=== PATIENT | male | born 1980 | race African-American/Black ===

== ENCOUNTER 2020-01-21 12:28 | Outpatient (REF) | payer MEDICAID, SELFPAY | END 2020-01-21 12:29 | disposition home or self-care (01) | LOC: HO.LAB 12:28 | PROVIDERS: Visit Provider Internal Medicine | DX: Z20.828 Contact with and (suspected) exposure to other viral communicable diseases (principal) | CPT/HCPCS: C9803; U0003 ==

== ENCOUNTER 2020-04-16 23:16 | Emergency (ER) | payer OTHER, MEDICAID, SELFPAY ==
[2020-04-16 23:27] VITALS: BP 124/80; PULSE 65; RESP 16; TEMP 36.8; O2SAT 98; BMI 25.5
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
[2020-04-17] MEDS: Acetaminophen 325 MG TABLET 975 MG PO (00:10)
[2020-04-17] MEDS: Ibuprofen 800 MG TABLET PO (00:10)
[2020-04-17] MEDS: Lidocaine 4 % Patch ADH..PATCH 1 PATCH TRANSDERMA (00:11)
== END 2020-04-17 01:03 | disposition home or self-care (01) ==
PROVIDERS: Emergency Provider Student in an Organized Health Care Education/Training Program
DX: S39.012A Strain of muscle, fascia and tendon of lower back, initial encounter (principal); S29.012A Strain of muscle and tendon of back wall of thorax, initial encounter; M62.830 Muscle spasm of back; V53.5XXA Driver of pick-up truck or van injured in collision with car, pick-up truck or van in traffic accident, initial encounter; Y93.9 Activity, unspecified; Y92.410 Unspecified street and highway as the place of occurrence of the external cause; Y99.9 Unspecified external cause status; Z79.899 Other long term (current) drug therapy
CPT/HCPCS: 96372; 99284

== ENCOUNTER 2021-06-26 05:38 | Emergency (ER) | payer MEDICAID, SELFPAY ==
--- NOTE | ~2021-06-26 | XR_ITS ---
EXAMINATION: XR ANKLE, RIGHT CLINICAL INFORMATION: Pain and swelling COMPARISON: None TECHNIQUE: AP, lateral, and mortise views of the right ankle. FINDINGS: No fracture or dislocation. The ankle mortise is congruent with degenerative changes along the mortise. Osteophyte formation. Prominent intra-articular body along the anterior joint line measuring 1.3 cm. No ankle joint effusion. The soft tissues are unremarkable. XR/XR ankle RT min 3V IMPRESSION: Degenerative changes along the ankle mortise with intra-articular body present anteriorly.
[2021-06-26 05:48] VITALS: BP 137/88; PULSE 63; RESP 16; TEMP 36.6; O2SAT 99; BMI 26.9
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
[2021-06-26 07:11] VITALS: BP 130/77; PULSE 62; RESP 17; TEMP 36.7; O2SAT 99
== END 2021-06-26 07:38 | disposition home or self-care (01) ==
PROVIDERS: Emergency Provider Emergency Medicine
DX: S93.401A Sprain of unspecified ligament of right ankle, initial encounter (principal); M72.2 Plantar fascial fibromatosis; X58.XXXA Exposure to other specified factors, initial encounter; Y93.9 Activity, unspecified; Y92.9 Unspecified place or not applicable; Y99.9 Unspecified external cause status; Z79.899 Other long term (current) drug therapy
CPT/HCPCS: 73610; 99283; 99284